=== PATIENT | female | born 1935 | race Caucasian/White ===

== ENCOUNTER 2017-06-20 08:20 | Outpatient (CLI) | payer MEDICARE, BC | END 2017-06-20 08:21 | disposition home or self-care (01) | LOC: BICMAMMO 08:20 | PROVIDERS: ATTEND Internal Medicine | DX: Z12.31 Encounter for screening mammogram for malignant neoplasm of breast (principal); M81.0 Age-related osteoporosis without current pathological fracture; M85.80 Other specified disorders of bone density and structure, unspecified site; Z80.3 Family history of malignant neoplasm of breast | CPT/HCPCS: 77063; 77067; 77080 ==

== ENCOUNTER 2017-06-20 12:12 | Outpatient (CLI) | payer MEDICARE, BC | END 2017-06-20 12:13 | disposition home or self-care (01) | LOC: SCSMRI 12:12 | PROVIDERS: ATTEND Psychiatry & Neurology Neurology | DX: R26.9 Unspecified abnormalities of gait and mobility (principal); M47.892 Other spondylosis, cervical region; M47.894 Other spondylosis, thoracic region; M47.896 Other spondylosis, lumbar region; M43.8X4 Other specified deforming dorsopathies, thoracic region; M41.9 Scoliosis, unspecified | CPT/HCPCS: 72156; 72157; 72158 ==

== ENCOUNTER 2017-12-16 10:01 | Outpatient (CLI) | payer MEDICARE, BC ==
--- NOTE | 2017-12-16 14:26 | MRI ---
MRI BRAIN WITHOUT CONTRAST: HISTORY: Gait abnormalities. Difficulty walking x several months. The symptoms are worsening. COMPARISON: None. TECHNIQUE: MRI brain is performed without intravenous Gadolinium administration. Multisequential, multiplanar i maging is performed. FINDINGS: No hemorrhage on the axial gradient echo sequence. No brain parenchymal mass, mass effect, or midline shift. Brain volume, age appropriate. Cortical g ray-white matter differentiation is preserved. The ventricles and sulci are patent and symmetric. Calvarium has a normal T1 marrow signal intensity. Midline brain parenchymal structures are unremark able. Central arterial flow voids are maintained. Absent restricted diffusion. There is a nonspecific T2 and FLAIR white matter hyperintensity involving the posterior left chatterjee r adiata measuring 0.8 x 0.8 cm. Findings may represent a focus of chronic small-vessel ischemic singh e. However, the T2 hyperintense lesion is solitary and somewhat atypical in location for chronic sma ll-vessel ischemic change. Postcontrast imaging is recommended to exclude an underlying malignant pr ocess. There is mucosal thickening of bilateral ethmoid air cells and the right sphenoid sinus. IMPRESSION: Solitary T2 and FLAIR white matter hyperintense focus somewhat atypical in location and appearance. Though the possibility of chronic small-vessel ischemic change can be entertained, post contrast imag ing is recommended. POS: [facility]
== END 2017-12-16 10:02 | disposition home or self-care (01) ==
LOC: BICMRI 10:01
PROVIDERS: ATTEND Psychiatry & Neurology Neurology
DX: R26.9 Unspecified abnormalities of gait and mobility (principal)
CPT/HCPCS: 70551

== ENCOUNTER 2018-06-02 00:03 | Emergency (ER) | payer MEDICARE, BC ==
[2018-06-02 00:26] LABS: #Basophils 0.1 thou/uL (0.0-0.2); #Eosinphils 0.1 thou/uL (0.0-0.7); #Lymphocytes 1.4 thou/uL (1.20-3.40); #Monocytes 0.8 thou/uL (0.11-0.59); #Neutrophils 6.6 thou/uL (1.40-6.50); %Basophils 0.6 % (0.0-1.0); %Eosinophils 1.4 % (0.0-10.0); %Monocytes 8.9 % (0.0-10.0); Mean Corpuscular Hemoglobin 28.7 pg (27.0-31.0); Mean Corpuscular Volume 89.8 fL (78.0-98.0); Mean Platelet Volume 8.2 fL (7.4-10.4); Platelet Count 215 thou/uL (130-400); RBC Distribution Width 11.9 % (11.5-14.5); Red Blood Cell (RBC) Count 5.58 mill/uL (4.20-5.40)
[2018-06-02 00:51] LABS: ALT (SGPT) 17 U/L (8-55); AST (SGOT) 28 U/L (5-34); Alkaline Phosphatase 75 U/L (40-150); Anion Gap 17 mmol/L (10-20); BUN (Urea Nitrogen) 22 mg/dL (9.8-20.1); Bilirubin, Total 0.3 mg/dL (0.2-1.2); Calc. Creatinine Clearance 0 mL/min (70-130); Calcium 10.4 mg/dL (7.8-10.44); Carbon Dioxide 24 mmol/L (23-31); Chloride 100 mmol/L (98-107); Estimated GFR-MDRD 45; Globulin 4.1 g/dL (2.4-3.5); Glucose 118 mg/dL (83-110); Potassium 4.7 mmol/L (3.5-5.1); Protein, Total 8.1 g/dL (6.0-8.3); Sodium 136 mmol/L (136-145)
[2018-06-02 03:40] LABS: Digoxin 0.44 ng/mL (0.8-2.0)
--- NOTE | 2018-06-02 08:28 | RAD ---
SINGLE VIEW CHEST: HISTORY: Dyspnea. COMPARISON: 05/02/2016 FINDINGS: Single view of the chest show normal sized cardiomediastinal silhouette. There is no evidence of cons olidation, mass, or pleural effusion. Hardware is seen in the right shoulder and spine. IMPRESSION: No evidence of acute cardiopulmonary disease. POS: [facility]
== END 2018-06-02 03:31 | disposition home or self-care (01) ==
LOC: ERS 00:03
DX: S39.011A Strain of muscle, fascia and tendon of abdomen, initial encounter (principal); E03.9 Hypothyroidism, unspecified; M19.90 Unspecified osteoarthritis, unspecified site; I10 Essential (primary) hypertension; I34.1 Nonrheumatic mitral (valve) prolapse; W22.8XXA Striking against or struck by other objects, initial encounter
CPT/HCPCS: 36415; 71045; 80053; 80162; 83880; 84484; 85025; 93005; 94760

== ENCOUNTER 2018-06-13 08:31 | Outpatient (CLI) | payer MEDICARE, BC ==
--- NOTE | 2018-06-13 09:42 | RAD ---
CHEST TWO VIEWS: HISTORY: Pleurodynia. Bilateral rib pain. COMPARISON: 07/02/2016 FINDINGS: Two views of the chest show a normal sized cardiomediastinal silhouette. There is stable elevation o f the right hemidiaphragm. Increased interstitial markings are present. There is no evidence of con solidation, mass, or pleural effusion. Hardware is seen in the spine and right shoulder. IMPRESSION: No evidence of acute cardiopulmonary disease. POS: [facility]
--- NOTE | 2018-06-13 09:43 | RAD ---
LEFT RIBS THREE VIEWS: HISTORY: Pleurodynia. Bilateral rib pain. FINDINGS: The left ribs appear intact. No fracture or rib lesion identified. IMPRESSION: No acute left rib lesion identified. POS: [facility]
--- NOTE | 2018-06-13 09:44 | RAD ---
RIGHT RIB SERIES: HISTORY: Pleurodynia with bilateral rib pain. COMPARISON: None. FINDINGS: Multiple views of the right ribs show no evidence of a displaced right rib fracture. No underlying p leural thickening or pneumothorax is seen. IMPRESSION: No evidence of displaced rib fracture. POS: [facility]
--- NOTE | 2018-06-13 10:39 | CT ---
CT ABDOMEN AND PELVIS WITH AND WITHOUT IV CONTRAST: Date: 06/13/18 HISTORY: 83-year-old female with epigastric pain. FINDINGS: Comparison made with exam of 11/07/16. Chronic changes in the lung bases are again seen. Postop changes of abdominal wall herniorrhaphy are again noted. The liver, spleen, pancreas, adrenal glands, and kidneys are unremarkable. No calcified gallstones are seen. No calculi seen in the kidneys, ureters, or the urinary bladder. No hydrouretero nephrosis is noted on either side. No free air, free fluid, or lymphadenopathy seen in the abdomen or pelvis. There are vascular calcifi cations without evidence of aneurysmal dilatation of the abdominal aorta. There are degenerative maldonado ges with scoliosis of the spine. Postop changes with metallic hardware are present in the lumbar spin e. The small bowel loops are not abnormally dilated. There is fecal material in the colon and rectum. There are postop changes of right hip arthroplasty. There is prominence of the wall of the stomach, which may be due to wall thickening or incomplete distention. IMPRESSION: 1. Constipation. 2. Wall thickening versus incomplete distention of the stomach. Endoscopy would be helpful. POS: [facility]
[2018-06-13] MEDS ORDERED: ISOVUE-370 76%-LOCM 1 ML ONE (13:37)
== END 2018-06-13 08:32 | disposition home or self-care (01) ==
LOC: BICCT 08:31
PROVIDERS: ATTEND Internal Medicine
DX: R07.81 Pleurodynia (principal); R10.13 Epigastric pain; K59.00 Constipation, unspecified
CPT/HCPCS: 71046; 74178; Q9966

== ENCOUNTER 2018-08-26 12:57 | Outpatient (CLI) | payer MEDICARE, BC ==
--- NOTE | 2018-08-26 13:28 | RAD ---
XR Pelvis AP STANDARD History: [Pain] Comparison: Radiograph 2008 Findings: Prior laminectomy changes of posterior spinal fusion hardware lower lumbar spine. Right hip arthroplasty is in place. Obturator rings are intact. Left hip is unremarkable. Impression: Chronic findings. No acute fracture.
--- NOTE | 2018-08-26 13:29 | RAD ---
XR Hip Rt 2-3 View History: [Fall. Pain.] Comparison: Radiograph 2008 Findings: Continued satisfactory appearance right hip arthroplasty. No acute fracture. No pericardium hardware lucency. Obturator ring is intact. Impression: No acute abnormality.
== END 2018-08-26 12:58 | disposition home or self-care (01) ==
LOC: BICRAD 12:57
PROVIDERS: ATTEND Internal Medicine
DX: M25.551 Pain in right hip (principal); R10.2 Pelvic and perineal pain; Z91.81 History of falling; Z98.1 Arthrodesis status; Z96.641 Presence of right artificial hip joint
CPT/HCPCS: 72170

== ENCOUNTER 2018-10-14 10:28 | Outpatient (CLI) | payer MEDICARE, BC ==
--- NOTE | 2018-10-14 15:36 | NM ---
TOTAL BODY BONE SCAN: 10/14/18 HISTORY: Low back pain, osteoporosis, right shoulder pain for years, new onset left hip pain. Patient was injected with 32.1 millicuries technetium 99m MDP intravenously. Three hour post scan who le body images demonstrates dextroscoliosis of the upper lumbar lower thoracic vertebral column with several areas of focal increased activity including the right T11 vertebral region as well as the lef t L1 region. There is bilateral renal and bladder activity. There is evidence for total right hip rep lacement. There is some focal areas of increased activity involving the feet, knees, elbows, wrists a nd shoulders, evidence for degenerative or orthosis changes. Evidence for right shoulder replacement. No evidence for abnormal increased activity in the region of the left hip or periprosthetic abnormal increased activity of the right hip region. IMPRESSION: Dextroscoliosis of the lumbar and thoracic vertebral column with multiple focal areas of abnormal inc reased activity including the right T11 region and the left L1 region, nonspecific. Multiple focal areas of increased activity involving numerous joints, evidence for degenerative or os teoarthrosis changes. Right shoulder and right hip replacement changes. No evidence for abnormal incr eased activity in the left hip. POS: [facility]
== END 2018-10-14 10:29 | disposition home or self-care (01) ==
LOC: NM 10:28
PROVIDERS: ATTEND Internal Medicine
DX: M19.90 Unspecified osteoarthritis, unspecified site (principal); M54.5 Low back pain; R53.83 Other fatigue; M25.519 Pain in unspecified shoulder; M41.9 Scoliosis, unspecified
CPT/HCPCS: 78306; A9503

== ENCOUNTER 2020-02-03 09:44 | Outpatient (CLI) | payer MEDICARE, BC ==
--- NOTE | 2020-02-03 11:03 | BD ---
EXAM: DEXA bone density examination HISTORY: 84-year-old postmenopausal female for screening COMPARISON: None FINDINGS: Left distal third forearm--bone mineral density0.591; T score -1.7 Total distal left forearm--bone mineral density 0.420; T score -2.9 Left femoral neck--bone mineral density0.624; T score -2.0 Total proximal left femur--bone mineral density 0.682; T score -2.1 IMPRESSION: Osteopenia.
== END 2020-02-03 09:45 | disposition home or self-care (01) ==
LOC: BICMAMMO 09:44
PROVIDERS: ATTEND Internal Medicine Rheumatology
DX: M81.0 Age-related osteoporosis without current pathological fracture (principal); M85.852 Other specified disorders of bone density and structure, left thigh
CPT/HCPCS: 77080

== ENCOUNTER 2022-02-05 00:27 | Emergency (ER) | payer MEDICARE, BC ==
[2022-02-05 01:34] LABS: #Lymphocytes 0.6 thou/uL (1.20-3.40); #Monocytes 0.8 thou/uL (0.11-0.59); #Neutrophils 5.1 thou/uL (1.40-6.50); %Eosinophils 0.6 % (0.0-10.0); %Lymphocytes 9.6 % (21.0-51.0); %Monocytes 12.1 % (0.0-10.0); %Neutrophils 77.8 % (42.0-75.0); Hemoglobin 14.9 g/dL (12.0-16.0); Mean Corpuscular HGB CONC 34.3 g/dL (32.0-36.0); Mean Corpuscular Volume 90.3 fl (78.0-98.0); Mean Platelet Volume 7.6 fL (7.4-10.4); Platelet Count 270 10x3/uL (130-400); RBC Distribution Width 12.4 % (11.5-14.5); White Blood Cell (WBC) Count 6.6 10x3/uL (4.8-10.8)
[2022-02-05 02:05] LABS: ALT (SGPT) 14 U/L (8-55); AST (SGOT) 24 U/L (5-34); Albumin 3.7 g/dL (3.4-4.8); Alkaline Phosphatase 78 U/L (40-110); Anion Gap 14 mmol/L (10-20); BUN (Urea Nitrogen) 27 mg/dL (9.8-20.1); Bilirubin, Total Less than 0.2 mg/dL (0.2-1.2); Calc. Creatinine Clearance 0 mL/min (70-130); Calcium 9.2 mg/dL (7.8-10.44); Carbon Dioxide 24 mmol/L (23-31); Chloride 97 mmol/L (98-107); Estimated GFR 35; Globulin 3.9 g/dL (2.4-3.5); Glucose 102 mg/dL (83-110); Potassium 5.4 mmol/L (3.5-5.1); Protein, Total 7.6 g/dL (5.8-8.1); Sodium 130 mmol/L (136-145)
[2022-02-05 02:50] LABS: INR-International Normal Ratio 0.9; Prothrombin Time 12.9 sec (12.0-14.7)
[2022-02-05 02:51] LABS: PTT 29.4 sec (22.9-36.1)
[2022-02-05 04:13] LABS: Bilirubin Negative (Negative); Blood, Urine Negative (Negative); Clarity Clear (Clear); Glucose, Urine (Dipstick) Normal (Negative); Ketone, Urine Negative (Negative); Leukocyte Negative Leu/uL (Negative); Nitrite Negative (Negative); Protein, Urine (Dipstick) Negative (Neg-Trace); Specific Gravity, Urine 1.015 (1.002-1.036); Urobilinogen Normal mg/dL (Less than 2); pH, Urine 6.5 (5.0-9.0)
[2022-02-05 04:19] LABS: Amphetamine Not Detected (NotDetected); Barbiturates Screen Not Detected (NotDetected); Benzodiazepine Screen Detected (NotDetected); Cocaine Metabolite Screen Not Detected (NotDetected); Methadone Not Detected (NotDetected); Methamphetamine Not Detected (NotDetected); Opiate Screen Not Detected (NotDetected); Oxycodone Screen Not Detected (NotDetected); Phencyclidine (PCP) Not Detected (NotDetected); THC/Cannabinoid Screen Not Detected (NotDetected); Tricyclic Screen Not Detected (NotDetected)
[2022-02-05] MEDS ORDERED: Iopamidol-370 76% 500 ML 1 ML ONE (14:01)
== END 2022-02-05 06:14 | disposition home or self-care (01) ==
LOC: ERS 00:27
DX: E86.0 Dehydration (principal); E03.9 Hypothyroidism, unspecified; I10 Essential (primary) hypertension; Z79.82 Long term (current) use of aspirin; Z79.899 Other long term (current) drug therapy
CPT/HCPCS: 36415; 70496; 70498; 71045; 80053; 80306; 81003; 84484; 85025; 85610; 85730; 93005; Q9967

== ENCOUNTER 2022-03-21 17:52 | Inpatient (IN) | payer MEDICARE, BC ==
[2022-03-21] MEDS ORDERED: Nitroglycerin 2% Ointment 1 INCH/1 GM Packet ONE (18:20)
[2022-03-21] MEDS ORDERED: Nitroglycerin 0.4 MG TAB 1 EACH ONE (18:20)
[2022-03-21] MEDS ORDERED: Metoprolol Tartrate 5 MG/5 ML VIAL ONE (18:20)
[2022-03-21] MEDS ORDERED: Senokot S 8.6-50 MG TAB PO PRN (19:31)
[2022-03-21] MEDS ORDERED: Ondansetron ODT 4 MG TAB PO PRN (19:31)
[2022-03-21 20:06] LABS: #Lymphocytes 0.7 thou/uL (1.20-3.40); #Monocytes 0.7 thou/uL (0.11-0.59); %Eosinophils 0.4 % (0.0-10.0); %Lymphocytes 9.8 % (21.0-51.0); %Monocytes 8.8 % (0.0-10.0); Hemoglobin 14.1 g/dL (12.0-16.0); Mean Corpuscular HGB CONC 32.9 g/dL (32.0-36.0); Mean Corpuscular Hemoglobin 30.4 pg (27.0-31.0); Mean Corpuscular Volume 92.5 fl (78.0-98.0); Mean Platelet Volume 7.3 fL (7.4-10.4); Platelet Count 297 10x3/uL (130-400); RBC Distribution Width 12.5 % (11.5-14.5); Red Blood Cell (RBC) Count 4.62 mill/uL (4.20-5.40); White Blood Cell (WBC) Count 7.4 10x3/uL (4.8-10.8)
[2022-03-21 20:15] LABS: PTT 28.8 sec (22.9-36.1); Prothrombin Time 13.6 sec (12.0-14.7)
[2022-03-21] MEDS ORDERED: Enoxaparin Sodium 100 MG/ML SYRINGE ONE (20:17)
[2022-03-21 20:26] LABS: ALT (SGPT) Less than 7 U/L (8-55); AST (SGOT) 18 U/L (5-34); Albumin 3.3 g/dL (3.4-4.8); Alkaline Phosphatase 63 U/L (40-110); Anion Gap 14 mmol/L (10-20); BUN (Urea Nitrogen) 20 mg/dL (9.8-20.1); Bilirubin, Total 0.5 mg/dL (0.2-1.2); Calc. Creatinine Clearance 0 mL/min (70-130); Carbon Dioxide 25 mmol/L (23-31); Chloride 102 mmol/L (98-107); Estimated GFR 68; Globulin 3.5 g/dL (2.4-3.5); Glucose 93 mg/dL (83-110); Potassium 4.1 mmol/L (3.5-5.1); Protein, Total 6.8 g/dL (5.8-8.1); Sodium 137 mmol/L (136-145)
[2022-03-21] MEDS: Famotidine 20 MG TAB PO SCH (21:00)
[2022-03-21] MEDS ORDERED: Famotidine 20 MG TAB ONE (21:01)
[2022-03-21 23:23] VITALS: BMI 16.6
[2022-03-22] MEDS ORDERED: Dextrose 5 %-0.45 % NaCl 1,000 ML IV SCH (00:01)
[2022-03-22 00:49] LABS: Troponin I Less than 0.010 ng/mL (< 0.028)
[2022-03-22 04:45] LABS: #Eosinphils 0.1 thou/uL (0.0-0.7); #Lymphocytes 0.9 thou/uL (1.20-3.40); #Monocytes 0.9 thou/uL (0.11-0.59); #Neutrophils 4.5 thou/uL (1.40-6.50); %Basophils 0.5 % (0.0-1.0); %Eosinophils 1.3 % (0.0-10.0); %Lymphocytes 13.7 % (21.0-51.0); %Monocytes 13.9 % (0.0-10.0); %Neutrophils 70.7 % (42.0-75.0); Hemoglobin 14.1 g/dL (12.0-16.0); Mean Corpuscular Hemoglobin 30.7 pg (27.0-31.0); Platelet Count 296 10x3/uL (130-400); RBC Distribution Width 12.6 % (11.5-14.5); Red Blood Cell (RBC) Count 4.58 mill/uL (4.20-5.40); White Blood Cell (WBC) Count 6.4 10x3/uL (4.8-10.8)
[2022-03-22 05:09] LABS: Anion Gap 11 mmol/L (10-20); BUN (Urea Nitrogen) 18 mg/dL (9.8-20.1); Calc. Creatinine Clearance 35 mL/min (70-130); Calcium 8.9 mg/dL (7.8-10.44); Carbon Dioxide 24 mmol/L (23-31); Chloride 103 mmol/L (98-107); Estimated GFR 68; Glucose 95 mg/dL (83-110); Potassium 4.3 mmol/L (3.5-5.1); Sodium 134 mmol/L (136-145)
[2022-03-22 05:10] LABS: Troponin I 0.011 ng/mL (< 0.028)
[2022-03-22] MEDS ORDERED: Sodium Chloride 0.9% 1,000 ML IV SCH ×2 (08:45→14:45)
[2022-03-22] MEDS ORDERED: Communication Order-Pharmacy FS SCH (08:45)
[2022-03-22] MEDS: Bisoprolol Fumarate 5 MG TAB PO SCH (10:43)
[2022-03-22] MEDS: Loratadine 10 MG TAB PO SCH (10:44)
[2022-03-22] MEDS ORDERED: Lidocaine 1% (PF) 30 ML VIAL ONE (10:59)
[2022-03-22] MEDS ORDERED: Nitroglycerin 100MG/250ML BOT 0 ML ONE (10:59)
[2022-03-22] MEDS ORDERED: Heparin 10,000 UNITS/ 10 ML VIAL ONE (10:59)
[2022-03-22] MEDS ORDERED: FENTANYL 50 MCG/ML 1 ML VIAL ONE (13:49)
[2022-03-22] MEDS ORDERED: Midazolam HCl 2 mg/2 ml Vial ONE (13:49)
[2022-03-22] MEDS ORDERED: Acetaminophen/Codeine 30-300mg Tablet PO PRN ×2 (14:35)
[2022-03-22] MEDS ORDERED: Nitroglycerin 0.4 MG TAB (25 Tab Bottle) SL PRN (14:35)
[2022-03-22] MEDS ORDERED: Sodium Chloride 0.9% 200 ML IV PRN (14:35)
[2022-03-22] MEDS: Furosemide 20 MG TAB PO SCH (16:36)
[2022-03-22] MEDS ORDERED: FLU VACC QS2022-23(65YR UP)/PF 240 MCG/0.7 ML SYRINGE IM ONE (18:00)
[2022-03-22] MEDS: Amoxicillin/Potassium Clav 875 MG TAB PO SCH (20:49)
[2022-03-22] MEDS: Famotidine 20 MG TAB PO SCH (20:49)
[2022-03-22] MEDS ORDERED: Atorvastatin Calcium 40 MG TAB PO SCH (21:00)
[2022-03-23] MEDS: Acetaminophen 325 MG TAB PO PRN ×2 (01:32→12:01)
[2022-03-23] MEDS ORDERED: Levothyroxine Sodium 88 MCG TAB PO SCH (06:00)
[2022-03-23] MEDS ORDERED: Aspirin 81 mg Enteric Coated Tablet PO SCH (09:00)
[2022-03-23] MEDS: Amoxicillin/Potassium Clav 875 MG TAB PO SCH (11:47)
[2022-03-23] MEDS: Bisoprolol Fumarate 5 MG TAB PO SCH (11:48)
[2022-03-23] MEDS: Furosemide 20 MG TAB PO SCH (11:51)
[2022-03-23] MEDS: Loratadine 10 MG TAB PO SCH (11:59)
[2022-03-23 14:51] VITALS: BP 135/65; TEMP 98.9
[2022-03-23] MEDS ORDERED: Digoxin 0.125 MG TAB PO SCH (17:00)
== END 2022-03-23 16:31 | disposition home or self-care (01) | DRG 287 ==
LOC: ERS 17:52 → ERHOLD 18:26 → 2NO 03-22 02:14
PROVIDERS: ADMIT Family Medicine; ATTEND Family Medicine
PROC: 4A023N7 Measurement of Cardiac Sampling and Pressure, Left Heart, Percutaneous Approach (ICD-10-PCS; principal; 2022-03-22)
PROC: B2151ZZ Fluoroscopy of Left Heart using Low Osmolar Contrast (ICD-10-PCS; 2022-03-22)
PROC: B2111ZZ Fluoroscopy of Multiple Coronary Arteries using Low Osmolar Contrast (ICD-10-PCS; 2022-03-22)
DX: I25.110 Atherosclerotic heart disease of native coronary artery with unstable angina pectoris (principal); I50.30 Unspecified diastolic (congestive) heart failure; Z20.822 Contact with and (suspected) exposure to COVID-19; I48.91 Unspecified atrial fibrillation; I16.0 Hypertensive urgency; I11.0 Hypertensive heart disease with heart failure; Z96.619 Presence of unspecified artificial shoulder joint; Z96.649 Presence of unspecified artificial hip joint; M26.602 Left temporomandibular joint disorder, unspecified; J32.0 Chronic maxillary sinusitis; Z79.899 Other long term (current) drug therapy; Z79.82 Long term (current) use of aspirin; Z82.3 Family history of stroke; Z82.49 Family history of ischemic heart disease and other diseases of the circulatory system
CPT/HCPCS: 36415; 36416; 71045; 80048; 80053; 84484; 85025; 85610; 85730; 93005; 93306; 96372; 96374; 97139; C1769; C1894; J1644; J1650; J2001; J2250; J3010; J7042; J7050; U0003; U0005

== ENCOUNTER 2022-11-04 09:11 | Inpatient (IN) | payer MEDICARE, BC ==
[~2022-11-04 09:11] MED LIST: Iopamidol-370 76% 500 ML MDV (1 ML CHARGE) ONE
[2022-11-04 09:41] LABS: #Monocytes 1.1 thou/uL (0.11-0.59); #Neutrophils 20.1 thou/uL (1.40-6.50); %Basophils 0.1 % (0.0-1.0); %Lymphocytes 1.8 % (21.0-51.0); %Neutrophils 92.5 % (42.0-75.0); Hemoglobin 15.1 g/dL (12.0-16.0); Mean Corpuscular HGB CONC 33.6 g/dL (32.0-36.0); Mean Corpuscular Hemoglobin 29.5 pg (27.0-31.0); Mean Corpuscular Volume 88.1 fl (78.0-98.0); Mean Platelet Volume 9.5 fL (7.4-10.4); Platelet Count 247 10x3/uL (130-400); RBC Distribution Width 14.9 % (11.5-14.5); Red Blood Cell (RBC) Count 5.11 mill/uL (4.20-5.40); White Blood Cell (WBC) Count 21.7 10x3/uL (4.8-10.8)
[2022-11-04 10:07] LABS: Troponin I Less than 0.010 ng/mL (< 0.028)
[2022-11-04 10:16] LABS: ALT (SGPT) 17 U/L (8-55); AST (SGOT) 23 U/L (5-34); Albumin 3.4 g/dL (3.4-4.8); Alkaline Phosphatase 66 U/L (40-110); Anion Gap 13 mmol/L (10-20); BUN (Urea Nitrogen) 20 mg/dL (9.8-20.1); Bilirubin, Total 0.7 mg/dL (0.2-1.2); Calc. Creatinine Clearance 0 mL/min (70-130); Carbon Dioxide 24 mmol/L (23-31); Chloride 96 mmol/L (98-107); Estimated GFR 65; Globulin 3.4 g/dL (2.4-3.5); Glucose 98 mg/dL (83-110); Protein, Total 6.8 g/dL (5.8-8.1); Sodium 129 mmol/L (136-145)
[2022-11-04 10:52] LABS: Bilirubin Negative (Negative); Blood, Urine Negative (Negative); CAUTI Indications for Culture Alt mental st,lethar; Clarity Clear (Clear); Glucose, Urine (Dipstick) Normal (Negative); Ketone, Urine Negative (Negative); Leukocyte 25 Leu/uL (Negative); Nitrite 2+ (Negative); Protein, Urine (Dipstick) Negative (Neg-Trace); RBC/HPF None Seen HPF (0-3); Specific Gravity, Urine 1.015 (1.002-1.036); Squamous Epithelial 0-3 HPF (0-3); Urobilinogen Normal mg/dL (Less than 2)
[2022-11-04 11:03] LABS: Bacteria/HPF 2+ HPF (None Seen)
[2022-11-04 11:04] LABS: Urine Culture Reflex No No
[2022-11-04] MEDS ORDERED: cefTRIAXone (ROCEPHIN) 2 GM VIAL ONE (11:17)
[2022-11-04] MEDS ORDERED: Acetaminophen 325 MG TAB PO PRN (12:18)
[2022-11-04] MEDS ORDERED: VANCOMYCIN IVPB PRN (12:18)
[2022-11-04] MEDS ORDERED: Ondansetron PF 4 MG/2 ML Vial IVP PRN (12:18)
[2022-11-04] MEDS: Vancomycin HCl 500 MG in Sodium Chloride 0.9% 100 ML IVPB SCH (14:52)
[2022-11-04 16:02] VITALS: BMI 17.8
[2022-11-04] MEDS: Cefepime 1 GM in Sodium Chloride 0.9% 100 ML IVPB SCH (16:47)
[2022-11-04] MEDS: Bisoprolol Fumarate 5 MG TAB PO SCH (20:54)
[2022-11-04] MEDS: Aspirin 325 MG TAB PO SCH (20:54)
[2022-11-05] MEDS: Vancomycin HCl 500 MG in Sodium Chloride 0.9% 100 ML IVPB SCH ×2 (01:24→13:48)
[2022-11-05] MEDS: Cefepime 1 GM in Sodium Chloride 0.9% 100 ML IVPB SCH ×2 (03:18→16:57)
[2022-11-05] MEDS: Levothyroxine Sodium 88 MCG TAB PO SCH (05:24)
[2022-11-05 05:45] LABS: #Neutrophils 13.1 thou/uL (1.40-6.50); %Basophils 0.1 % (0.0-1.0); %Eosinophils 0.2 % (0.0-10.0); %Lymphocytes 4.3 % (21.0-51.0); %Monocytes 6.4 % (0.0-10.0); %Neutrophils 88.7 % (42.0-75.0); Hematocrit 38.5 % (36.0-47.0); Hemoglobin 12.8 g/dL (12.0-16.0); Mean Corpuscular HGB CONC 33.2 g/dL (32.0-36.0); Mean Corpuscular Hemoglobin 29.4 pg (27.0-31.0); Mean Corpuscular Volume 88.3 fl (78.0-98.0); Mean Platelet Volume 9.8 fL (7.4-10.4); Platelet Count 216 10x3/uL (130-400); RBC Distribution Width 15.2 % (11.5-14.5); Red Blood Cell (RBC) Count 4.36 mill/uL (4.20-5.40); White Blood Cell (WBC) Count 14.8 10x3/uL (4.8-10.8)
[2022-11-05 06:09] LABS: Anion Gap 12 mmol/L (10-20); BUN (Urea Nitrogen) 13 mg/dL (9.8-20.1); Calc. Creatinine Clearance 40 mL/min (70-130); Calcium 8.5 mg/dL (7.8-10.44); Carbon Dioxide 22 mmol/L (23-31); Cardiac Risk 2.5 (Less than 4.5); Chloride 103 mmol/L (98-107); Cholesterol 138 mg/dl (< 200 Desired); Estimated GFR 77; Glucose 87 mg/dL (83-110); HDL Cholesterol 56 mg/dL (>60 Neg Risk); LDL Cholesterol, Calculated 74 mg/dL; Potassium 3.9 mmol/L (3.5-5.1); Sodium 133 mmol/L (136-145); Triglycerides 38 mg/dL (Less than 150)
[2022-11-05] MEDS: Digoxin 0.125 MG TAB PO SCH (08:56)
[2022-11-05] MEDS: Aspirin 325 MG TAB PO SCH ×2 (08:56→20:47)
[2022-11-05] MEDS: Saccharomyces boulardii 250 MG CAP PO SCH (08:57)
[2022-11-05] MEDS: Furosemide 20 MG TAB PO SCH (08:57)
[2022-11-05] MEDS: Bisoprolol Fumarate 5 MG TAB PO SCH (20:47)
[2022-11-05] MEDS: Atorvastatin Calcium 40 MG TAB PO SCH (20:47)
[2022-11-06] MEDS: Cefepime 1 GM in Sodium Chloride 0.9% 100 ML IVPB SCH (04:55)
[2022-11-06] MEDS: Levothyroxine Sodium 88 MCG TAB PO SCH (04:56)
[2022-11-06 06:07] LABS: #Eosinphils 0.1 thou/uL (0.0-0.7); #Monocytes 0.6 thou/uL (0.11-0.59); #Neutrophils 6.5 thou/uL (1.40-6.50); %Basophils 0.4 % (0.0-1.0); %Eosinophils 1.5 % (0.0-10.0); %Lymphocytes 10.2 % (21.0-51.0); %Monocytes 7.4 % (0.0-10.0); %Neutrophils 80.3 % (42.0-75.0); Hematocrit 39.9 % (36.0-47.0); Hemoglobin 13.3 g/dL (12.0-16.0); Mean Corpuscular HGB CONC 33.3 g/dL (32.0-36.0); Mean Corpuscular Hemoglobin 29.5 pg (27.0-31.0); Mean Corpuscular Volume 88.5 fl (78.0-98.0); Mean Platelet Volume 10.1 fL (7.4-10.4); Platelet Count 208 10x3/uL (130-400); RBC Distribution Width 15.4 % (11.5-14.5); Red Blood Cell (RBC) Count 4.51 mill/uL (4.20-5.40); White Blood Cell (WBC) Count 8.1 10x3/uL (4.8-10.8)
[2022-11-06 06:32] LABS: Anion Gap 12 mmol/L (10-20); BUN (Urea Nitrogen) 15 mg/dL (9.8-20.1); Calc. Creatinine Clearance 32 mL/min (70-130); Calcium 8.6 mg/dL (7.8-10.44); Carbon Dioxide 22 mmol/L (23-31); Chloride 101 mmol/L (98-107); Estimated GFR 60; Glucose 84 mg/dL (83-110); Potassium 3.8 mmol/L (3.5-5.1); Sodium 131 mmol/L (136-145)
[2022-11-06] MEDS ORDERED: Meropenem 1 GM in Sodium Chloride 0.9% 100 ML IVPB SCH (08:30)
[2022-11-06] MEDS: Saccharomyces boulardii 250 MG CAP PO SCH (09:03)
[2022-11-06] MEDS: Aspirin 325 MG TAB PO SCH ×2 (09:03→21:14)
[2022-11-06] MEDS: Furosemide 20 MG TAB PO SCH (09:03)
[2022-11-06] MEDS ORDERED: Bisoprolol Fumarate 5 MG TAB PO SCH (13:00)
[2022-11-06] MEDS ORDERED: Estrogens, Conjugated 0.3 MG TAB PO SCH (14:00)
[2022-11-06] MEDS: Meropenem 1 GM in Sodium Chloride 0.9% 100 ML IVPB SCH (15:05)
[2022-11-06] MEDS: Bisoprolol Fumarate 5 MG TAB PO SCH (21:14)
[2022-11-06] MEDS: Atorvastatin Calcium 40 MG TAB PO SCH (21:14)
[2022-11-07] MEDS: Meropenem 1 GM in Sodium Chloride 0.9% 100 ML IVPB SCH ×2 (04:58→16:33)
[2022-11-07] MEDS: Levothyroxine Sodium 88 MCG TAB PO SCH (04:58)
[2022-11-07] MEDS: Digoxin 0.125 MG TAB PO SCH (08:30)
[2022-11-07] MEDS: Aspirin 325 MG TAB PO SCH (08:30)
[2022-11-07] MEDS: Furosemide 20 MG TAB PO SCH (08:30)
[2022-11-07] MEDS: Bisoprolol Fumarate 5 MG TAB PO SCH (08:30)
[2022-11-07] MEDS: Saccharomyces boulardii 250 MG CAP PO SCH (08:30)
[2022-11-07 08:31] VITALS: BP 171/75; TEMP 97.6
[2022-11-07] MEDS ORDERED: hydrALAZINE 20 MG/ML VIAL SLOW IVP PRN (08:51)
[2022-11-07] MEDS ORDERED: Bisoprolol Fumarate 5 MG TAB PO SCH (09:00)
== END 2022-11-07 17:44 | disposition home or self-care (01) | DRG 690 ==
LOC: ERS 09:11 → T4-A 12:02
PROVIDERS: ADMIT Family Medicine; ATTEND Internal Medicine
PROC: 3E03329 Introduction of Other Anti-infective into Peripheral Vein, Percutaneous Approach (ICD-10-PCS; 2022-11-04)
PROC: 02HV33Z Insertion of Infusion Device into Superior Vena Cava, Percutaneous Approach (ICD-10-PCS; principal; 2022-11-07)
PROC: B5181ZA Fluoroscopy of Superior Vena Cava using Low Osmolar Contrast, Guidance (ICD-10-PCS; 2022-11-07)
DX: N39.0 Urinary tract infection, site not specified (principal); I50.32 Chronic diastolic (congestive) heart failure; E87.1 Hypo-osmolality and hyponatremia; I11.0 Hypertensive heart disease with heart failure; I25.10 Atherosclerotic heart disease of native coronary artery without angina pectoris; I08.0 Rheumatic disorders of both mitral and aortic valves; E03.9 Hypothyroidism, unspecified; R30.0 Dysuria; H66.90 Otitis media, unspecified, unspecified ear; M19.90 Unspecified osteoarthritis, unspecified site; B96.20 Unspecified Escherichia coli [E. coli] as the cause of diseases classified elsewhere; Z96.641 Presence of right artificial hip joint; Z96.611 Presence of right artificial shoulder joint; Z96.651 Presence of right artificial knee joint; Z93.3 Colostomy status; Z98.890 Other specified postprocedural states; Z98.49 Cataract extraction status, unspecified eye; Z90.710 Acquired absence of both cervix and uterus; Z90.89 Acquired absence of other organs
CPT/HCPCS: 36415; 36416; 36569; 70450; 70496; 70498; 71045; 80048; 80053; 80061; 81001; 83605; 84443; 84484; 85025; 87040; 87077; 87086; 87186; 93005; 96365; J0692; J0696; J1650; J2185; J3370; J3490; Q9967

== ENCOUNTER 2022-11-16 07:25 | Inpatient (IN) | payer MEDICARE, BC ==
[2022-11-16 08:31] LABS: #Monocytes 0.3 thou/uL (0.11-0.59); #Neutrophils 17.7 thou/uL (1.40-6.50); %Basophils 0.2 % (0.0-1.0); %Eosinophils 0.2 % (0.0-10.0); %Lymphocytes 1.6 % (21.0-51.0); %Monocytes 1.5 % (0.0-10.0); %Neutrophils 96.2 % (42.0-75.0); Hematocrit 46.9 % (36.0-47.0); Hemoglobin 15.5 g/dL (12.0-16.0); Mean Corpuscular Hemoglobin 29.4 pg (27.0-31.0); Mean Corpuscular Volume 88.8 fl (78.0-98.0); Mean Platelet Volume 9.2 fL (7.4-10.4); Platelet Count 359 10x3/uL (130-400); RBC Distribution Width 14.1 % (11.5-14.5); Red Blood Cell (RBC) Count 5.28 mill/uL (4.20-5.40); White Blood Cell (WBC) Count 18.4 10x3/uL (4.8-10.8)
[2022-11-16 08:44] LABS: PTT 26.4 sec (22.9-36.1); Prothrombin Time 13.5 sec (12.0-14.7)
[2022-11-16 08:51] LABS: ALT (SGPT) 12 U/L (8-55); AST (SGOT) 21 U/L (5-34); Albumin 3.8 g/dL (3.4-4.8); Alkaline Phosphatase 79 U/L (40-110); Anion Gap 14 mmol/L (10-20); BUN (Urea Nitrogen) 19 mg/dL (9.8-20.1); Bilirubin, Total 0.5 mg/dL (0.2-1.2); Calc. Creatinine Clearance 0 mL/min (70-130); Calcium 9.9 mg/dL (7.8-10.44); Carbon Dioxide 27 mmol/L (23-31); Chloride 96 mmol/L (98-107); Estimated GFR 64; Globulin 3.9 g/dL (2.4-3.5); Glucose 93 mg/dL (83-110); Potassium 4.1 mmol/L (3.5-5.1); Protein, Total 7.7 g/dL (5.8-8.1); Sodium 133 mmol/L (136-145)
[2022-11-16] MEDS ORDERED: Ondansetron PF 4 MG/2 ML Vial ONE (09:26)
[2022-11-16 10:34] LABS: Troponin I 0.012 ng/mL (< 0.028)
[2022-11-16 11:54] LABS: Bacteria/HPF None Seen HPF (None Seen); Bilirubin Negative (Negative); Blood, Urine Negative (Negative); CAUTI Indications for Culture Dysuria,urgency,freq; Clarity Clear (Clear); Glucose, Urine (Dipstick) Normal (Negative); Ketone, Urine Negative (Negative); Leukocyte Negative Leu/uL (Negative); Nitrite Negative (Negative); Protein, Urine (Dipstick) Negative (Neg-Trace); RBC/HPF 0-3 HPF (0-3); Specific Gravity, Urine 1.021 (1.002-1.036); Squamous Epithelial None Seen HPF (0-3); Urobilinogen Normal mg/dL (Less than 2); WBC/HPF 0-3 HPF (0-3); pH, Urine 6.5 (5.0-9.0)
[2022-11-16 11:56] LABS: Urine Culture Reflex No No
[2022-11-16] MEDS ORDERED: Acetaminophen 325 MG TAB PO PRN ×2 (13:30→17:25)
[2022-11-16] MEDS ORDERED: Ondansetron ODT 4 MG TAB SL PRN (13:30)
[2022-11-16] MEDS ORDERED: Ondansetron PF 4 MG/2 ML Vial IVP PRN ×2 (13:30→17:25)
[2022-11-16] MEDS ORDERED: Iopamidol-370 76% 500 ML MDV (1 ML CHARGE) ONE (14:36)
[2022-11-16] MEDS ORDERED: Meropenem 1 GM in Sodium Chloride 0.9% 100 ML IVPB SCH ×2 (17:29→18:15)
[2022-11-16] MEDS ORDERED: Vancomycin HCl 750 MG in Sodium Chloride 0.9% 250 ML 250 ML IVPB SCH (18:15)
[2022-11-16] MEDS: Atorvastatin Calcium 40 MG TAB PO SCH (20:36)
[2022-11-16] MEDS: Aspirin 325 MG TAB PO SCH (20:36)
[2022-11-17] MEDS: Meropenem 1 GM in Sodium Chloride 0.9% 100 ML IVPB SCH ×2 (04:28→17:19)
[2022-11-17 05:55] LABS: #Eosinphils 0.1 thou/uL (0.0-0.7); #Neutrophils 12.3 thou/uL (1.40-6.50); %Basophils 0.1 % (0.0-1.0); %Eosinophils 0.7 % (0.0-10.0); %Monocytes 7.2 % (0.0-10.0); %Neutrophils 87.6 % (42.0-75.0); Mean Corpuscular HGB CONC 33.9 g/dL (32.0-36.0); Mean Corpuscular Hemoglobin 29.8 pg (27.0-31.0); Mean Platelet Volume 9.8 fL (7.4-10.4); Platelet Count 289 10x3/uL (130-400); RBC Distribution Width 14.1 % (11.5-14.5); Red Blood Cell (RBC) Count 4.09 mill/uL (4.20-5.40)
[2022-11-17 05:56] LABS: Hemoglobin 12.2 g/dL (12.0-16.0)
[2022-11-17 06:05] LABS: Anion Gap 8 mmol/L (10-20); BUN (Urea Nitrogen) 14 mg/dL (9.8-20.1); Calc. Creatinine Clearance 34 mL/min (70-130); Calcium 8.5 mg/dL (7.8-10.44); Carbon Dioxide 25 mmol/L (23-31); Chloride 100 mmol/L (98-107); Estimated GFR 69; Glucose 82 mg/dL (83-110); Sodium 129 mmol/L (136-145)
[2022-11-17] MEDS: Levothyroxine Sodium 88 MCG TAB PO SCH (06:06)
[2022-11-17] MEDS: Aspirin 325 MG TAB PO SCH ×2 (10:31→20:41)
[2022-11-17] MEDS: Estrogens, Conjugated 0.3 MG TAB PO SCH (10:31)
[2022-11-17] MEDS: Saccharomyces boulardii 250 MG CAP PO SCH (10:31)
[2022-11-17] MEDS: Polyethylene Glycol 3350 17 GM Packet PO SCH (10:33)
[2022-11-17 11:21] LABS: SARS-CoV-2 NAA Rapid Test Not Detected (NotDetected)
[2022-11-17] MEDS: Digoxin 0.125 MG TAB PO SCH (13:11)
[2022-11-17] MEDS ORDERED: Vancomycin HCl 750 MG in Sodium Chloride 0.9% 250 ML 250 ML IVPB SCH (18:00)
[2022-11-17] MEDS: Atorvastatin Calcium 40 MG TAB PO SCH (20:41)
[2022-11-18] MEDS: Meropenem 1 GM in Sodium Chloride 0.9% 100 ML IVPB SCH (04:39)
[2022-11-18 04:42] LABS: #Eosinphils 0.1 thou/uL (0.0-0.7); #Monocytes 0.7 thou/uL (0.11-0.59); #Neutrophils 5.1 thou/uL (1.40-6.50); %Basophils 0.5 % (0.0-1.0); %Eosinophils 1.4 % (0.0-10.0); %Monocytes 10.8 % (0.0-10.0); Hematocrit 40.5 % (36.0-47.0); Hemoglobin 13.3 g/dL (12.0-16.0); Mean Corpuscular HGB CONC 32.8 g/dL (32.0-36.0); Mean Corpuscular Hemoglobin 28.8 pg (27.0-31.0); Mean Corpuscular Volume 87.7 fl (78.0-98.0); Mean Platelet Volume 9.7 fL (7.4-10.4); Platelet Count 310 10x3/uL (130-400); RBC Distribution Width 14.1 % (11.5-14.5); Red Blood Cell (RBC) Count 4.62 mill/uL (4.20-5.40); White Blood Cell (WBC) Count 6.5 10x3/uL (4.8-10.8)
[2022-11-18 05:12] LABS: Anion Gap 10 mmol/L (10-20); BUN (Urea Nitrogen) 19 mg/dL (9.8-20.1); CRP (Inflammatory) 10.25 mg/dL (= or < 0.5); Calc. Creatinine Clearance 34 mL/min (70-130); Calcium 8.9 mg/dL (7.8-10.44); Carbon Dioxide 26 mmol/L (23-31); Chloride 101 mmol/L (98-107); Estimated GFR 70; Glucose 83 mg/dL (83-110); Potassium 4.2 mmol/L (3.5-5.1); Sodium 133 mmol/L (136-145)
[2022-11-18] MEDS: Levothyroxine Sodium 88 MCG TAB PO SCH (05:22)
[2022-11-18] MEDS: Saccharomyces boulardii 250 MG CAP PO SCH (09:53)
[2022-11-18] MEDS: Polyethylene Glycol 3350 17 GM Packet PO SCH (09:54)
[2022-11-18] MEDS: Aspirin 325 MG TAB PO SCH ×2 (09:54→20:10)
[2022-11-18] MEDS ORDERED: Mineral Oil ENEMA PR SCH (11:30)
[2022-11-18] MEDS: Estrogens, Conjugated 0.3 MG TAB PO SCH (13:31)
[2022-11-18] MEDS ORDERED: Polyethylene Glycol 3350 17 GM Packet PO SCH (15:00)
[2022-11-18] MEDS: Atorvastatin Calcium 40 MG TAB PO SCH (20:10)
[2022-11-19 04:12] VITALS: BMI 16.7
[2022-11-19 04:30] LABS: #Eosinphils 0.1 thou/uL (0.0-0.7); #Monocytes 0.7 thou/uL (0.11-0.59); #Neutrophils 3.6 thou/uL (1.40-6.50); %Basophils 0.4 % (0.0-1.0); %Eosinophils 2.2 % (0.0-10.0); %Lymphocytes 12.9 % (21.0-51.0); %Monocytes 13.1 % (0.0-10.0); Hemoglobin 13.5 g/dL (12.0-16.0); Mean Corpuscular HGB CONC 32.9 g/dL (32.0-36.0); Mean Corpuscular Hemoglobin 29.2 pg (27.0-31.0); Mean Corpuscular Volume 88.7 fl (78.0-98.0); Mean Platelet Volume 9.6 fL (7.4-10.4); Platelet Count 351 10x3/uL (130-400); RBC Distribution Width 14.2 % (11.5-14.5); Red Blood Cell (RBC) Count 4.62 mill/uL (4.20-5.40); White Blood Cell (WBC) Count 5.1 10x3/uL (4.8-10.8)
[2022-11-19] MEDS: Levothyroxine Sodium 88 MCG TAB PO SCH (05:20)
[2022-11-19 05:26] LABS: Anion Gap 11 mmol/L (10-20); BUN (Urea Nitrogen) 19 mg/dL (9.8-20.1); Calc. Creatinine Clearance 36 mL/min (70-130); Calcium 8.9 mg/dL (7.8-10.44); Carbon Dioxide 29 mmol/L (23-31); Chloride 98 mmol/L (98-107); Estimated GFR 67; Glucose 80 mg/dL (83-110); Potassium 3.9 mmol/L (3.5-5.1); Sodium 134 mmol/L (136-145)
[2022-11-19] MEDS: Aspirin 325 MG TAB PO SCH ×2 (09:24→21:05)
[2022-11-19] MEDS: Saccharomyces boulardii 250 MG CAP PO SCH (09:24)
[2022-11-19] MEDS: Estrogens, Conjugated 0.3 MG TAB PO SCH (09:25)
[2022-11-19] MEDS: Digoxin 0.125 MG TAB PO SCH (09:28)
[2022-11-19] MEDS: Atorvastatin Calcium 40 MG TAB PO SCH (21:05)
[2022-11-20 05:03] LABS: #Eosinphils 0.2 thou/uL (0.0-0.7); #Monocytes 0.6 thou/uL (0.11-0.59); %Basophils 0.4 % (0.0-1.0); %Lymphocytes 14.9 % (21.0-51.0); %Monocytes 9.9 % (0.0-10.0); %Neutrophils 71.4 % (42.0-75.0); Hematocrit 42.7 % (36.0-47.0); Hemoglobin 14.3 g/dL (12.0-16.0); Mean Corpuscular HGB CONC 33.5 g/dL (32.0-36.0); Mean Corpuscular Hemoglobin 29.5 pg (27.0-31.0); Mean Corpuscular Volume 88.2 fl (78.0-98.0); Mean Platelet Volume 9.7 fL (7.4-10.4); Platelet Count 397 10x3/uL (130-400); RBC Distribution Width 13.9 % (11.5-14.5); Red Blood Cell (RBC) Count 4.84 mill/uL (4.20-5.40); White Blood Cell (WBC) Count 5.6 10x3/uL (4.8-10.8)
[2022-11-20 05:32] LABS: Anion Gap 13 mmol/L (10-20); BUN (Urea Nitrogen) 14 mg/dL (9.8-20.1); Calc. Creatinine Clearance 43 mL/min (70-130); Calcium 9.3 mg/dL (7.8-10.44); Carbon Dioxide 26 mmol/L (23-31); Chloride 99 mmol/L (98-107); Estimated GFR 83; Glucose 97 mg/dL (83-110); Potassium 4.1 mmol/L (3.5-5.1); Sodium 134 mmol/L (136-145)
[2022-11-20] MEDS: Levothyroxine Sodium 88 MCG TAB PO SCH (05:34)
[2022-11-20] MEDS: Aspirin 325 MG TAB PO SCH ×2 (09:11→21:10)
[2022-11-20] MEDS: Estrogens, Conjugated 0.3 MG TAB PO SCH (09:11)
[2022-11-20] MEDS: Saccharomyces boulardii 250 MG CAP PO SCH (09:11)
[2022-11-20] MEDS ORDERED: Labetalol HCl 100 MG/20 ML VIAL SLOW IVP PRN (09:12)
[2022-11-20] MEDS ORDERED: Losartan 25 MG TAB PO SCH (09:30)
[2022-11-20] MEDS ORDERED: Polyethylene Glycol 3350 17 GM Packet PO SCH (09:30)
[2022-11-20] MEDS: Bisoprolol Fumarate 5 MG TAB PO SCH (12:11)
[2022-11-20] MEDS: Atorvastatin Calcium 40 MG TAB PO SCH (21:10)
[2022-11-21 05:01] LABS: #Eosinphils 0.2 thou/uL (0.0-0.7); #Monocytes 0.6 thou/uL (0.11-0.59); #Neutrophils 4.3 thou/uL (1.40-6.50); %Basophils 0.3 % (0.0-1.0); %Eosinophils 3.2 % (0.0-10.0); %Lymphocytes 17.4 % (21.0-51.0); %Neutrophils 68.8 % (42.0-75.0); Hematocrit 41.2 % (36.0-47.0); Hemoglobin 13.4 g/dL (12.0-16.0); Mean Corpuscular HGB CONC 32.5 g/dL (32.0-36.0); Mean Corpuscular Hemoglobin 29.3 pg (27.0-31.0); Mean Platelet Volume 9.3 fL (7.4-10.4); Platelet Count 356 10x3/uL (130-400); Red Blood Cell (RBC) Count 4.58 mill/uL (4.20-5.40); White Blood Cell (WBC) Count 6.2 10x3/uL (4.8-10.8)
[2022-11-21] MEDS: Levothyroxine Sodium 88 MCG TAB PO SCH (05:25)
[2022-11-21 05:33] LABS: Anion Gap 11 mmol/L (10-20); BUN (Urea Nitrogen) 21 mg/dL (9.8-20.1); Calc. Creatinine Clearance 37 mL/min (70-130); Calcium 9.1 mg/dL (7.8-10.44); Carbon Dioxide 26 mmol/L (23-31); Chloride 102 mmol/L (98-107); Estimated GFR 70; Glucose 80 mg/dL (83-110); Potassium 4.4 mmol/L (3.5-5.1); Sodium 135 mmol/L (136-145)
[2022-11-21] MEDS: Bisoprolol Fumarate 5 MG TAB PO SCH (09:44)
[2022-11-21] MEDS: Aspirin 325 MG TAB PO SCH ×2 (09:44→20:27)
[2022-11-21] MEDS: Estrogens, Conjugated 0.3 MG TAB PO SCH (09:44)
[2022-11-21] MEDS: Polyethylene Glycol 3350 17 GM Packet PO SCH (09:45)
[2022-11-21] MEDS: Saccharomyces boulardii 250 MG CAP PO SCH (09:45)
[2022-11-21] MEDS: Losartan 25 MG TAB PO SCH (09:46)
[2022-11-21] MEDS: Digoxin 0.125 MG TAB PO SCH (09:55)
[2022-11-21] MEDS: Atorvastatin Calcium 40 MG TAB PO SCH (20:27)
[2022-11-22] MEDS: Levothyroxine Sodium 88 MCG TAB PO SCH (05:50)
[2022-11-22] MEDS: Bisoprolol Fumarate 5 MG TAB PO SCH (08:41)
[2022-11-22] MEDS: Losartan 25 MG TAB PO SCH (08:41)
[2022-11-22] MEDS: Saccharomyces boulardii 250 MG CAP PO SCH (08:41)
[2022-11-22] MEDS: Aspirin 325 MG TAB PO SCH ×2 (08:41→21:32)
[2022-11-22] MEDS: Polyethylene Glycol 3350 17 GM Packet PO SCH (08:41)
[2022-11-22] MEDS: Estrogens, Conjugated 0.3 MG TAB PO SCH (08:41)
[2022-11-22] MEDS: Atorvastatin Calcium 40 MG TAB PO SCH (21:32)
[2022-11-23] MEDS: Levothyroxine Sodium 88 MCG TAB PO SCH (06:52)
[2022-11-23] MEDS: Saccharomyces boulardii 250 MG CAP PO SCH (08:41)
[2022-11-23] MEDS: Estrogens, Conjugated 0.3 MG TAB PO SCH (08:41)
[2022-11-23] MEDS: Losartan 25 MG TAB PO SCH (08:41)
[2022-11-23] MEDS: Bisoprolol Fumarate 5 MG TAB PO SCH (08:41)
[2022-11-23] MEDS: Aspirin 325 MG TAB PO SCH (08:41)
[2022-11-23] MEDS: Polyethylene Glycol 3350 17 GM Packet PO SCH (08:41)
[2022-11-23] MEDS: Digoxin 0.125 MG TAB PO SCH (08:42)
[2022-11-23 12:41] VITALS: BP 169/72; TEMP 97.3
== END 2022-11-23 13:22 | DRG 865 ==
LOC: ERS 07:25 → ERHOLD 13:17 → 2NO 15:26 → T4-B 11-21 16:34
PROVIDERS: ADMIT Family Medicine; ATTEND Internal Medicine
DX: B34.9 Viral infection, unspecified (principal); E43 Unspecified severe protein-calorie malnutrition; N39.0 Urinary tract infection, site not specified; K86.2 Cyst of pancreas; E87.1 Hypo-osmolality and hyponatremia; Z68.1 Body mass index [BMI] 19.9 or less, adult; Z16.12 Extended spectrum beta lactamase (ESBL) resistance; I50.22 Chronic systolic (congestive) heart failure; I48.0 Paroxysmal atrial fibrillation; I11.0 Hypertensive heart disease with heart failure; E03.9 Hypothyroidism, unspecified; I25.10 Atherosclerotic heart disease of native coronary artery without angina pectoris; I65.03 Occlusion and stenosis of bilateral vertebral arteries; L89.151 Pressure ulcer of sacral region, stage 1; I34.1 Nonrheumatic mitral (valve) prolapse; Z96.641 Presence of right artificial hip joint; Z96.611 Presence of right artificial shoulder joint; B96.20 Unspecified Escherichia coli [E. coli] as the cause of diseases classified elsewhere; R33.9 Retention of urine, unspecified; K59.09 Other constipation; Z98.49 Cataract extraction status, unspecified eye; Z98.890 Other specified postprocedural states; Z90.710 Acquired absence of both cervix and uterus; Z90.89 Acquired absence of other organs; R54 Age-related physical debility
CPT/HCPCS: 36415; 36416; 51701; 70450; 71045; 74177; 80048; 80053; 81001; 83605; 84484; 85025; 85610; 85730; 86140; 87040; 87086; 87633; 93005; 93010; 93306; 94760; 96361; 96374; J1650; J2185; J2405; J3370; J3490; J7050; Q9967